=== PATIENT | female | born 1995 | race Caucasian/White ===

== ENCOUNTER → 2022-01-18 | Outpatient (CLI) | payer BC ==
[2022-01-18 22:38] LABS: HCT 42.8 % (37.2-46.3); HGB 13.5 g/dL (12.0-15.0); MCH 27.9 pg (27.0-32.0); MCHC 31.5 g/dL (32.0-37.0); MCV 88.4 fL (80.0-97.0); Mean Platelet Volume 11.7 fL (9.5-12.2); NRBC Per 100 WBC 0 /100 WBCS (0.0-0.0); Platelet Count 242 X 10*3/uL (140-440); RBC 4.84 X 10*6/uL (4.10-5.20); RDW 13.3 % (11.5-14.5)
[2022-01-18 22:45] LABS: DHEA Sulfate 51.3 ug/dL (26.0-430.0); Insulin Level 58.5 mIU/mL (3.0-25.0)
[2022-01-18 23:07] LABS: Estradiol 61.3 pg/mL
[2022-01-18 23:08] LABS: Follicle Stimulating Hormone 3.1 mIU/mL; Luteinizing Hormone 7.1 mIU/mL
[2022-01-18 23:33] LABS: ALT 36 U/L (8-44); AST 29 U/L (13-35); African American GFR (CKD) 144.5 (60.0-200.0); Albumin 4.5 g/dL (3.8-4.9); Albumin/Globulin Ratio 1.82 (1.60-3.17); Alkaline Phosphatase 106 U/L (41-126); BUN/Creat Ratio 13.97 Ratio (12.00-20.00); Blood Urea Nitrogen 8.8 mg/dL (9.0-27.0); Calcium 9.6 mg/dL (8.7-10.3); Carbon Dioxide 23.1 mmol/L (20.0-27.5); Chloride 103 mmol/L (96-109); Globulin 2.5 g/dL (1.6-3.3); Glucose 78 mg/dL (70-110); Non-African American GFR(CKD) 124.7 (60.0-200.0); Potassium 4.1 mmol/L (3.5-5.5); Sodium 136 mmol/L (135-145); Total Bilirubin <0.15 mg/dL (0.30-1.20)
[2022-01-18 23:46] LABS: Thyroid Peroxidase Antibodies <9.0 U/mL (0.0-33.0)
== END | disposition home or self-care (01) ==
LOC: LABWHC1 12:29
PROVIDERS: ATTEND Internal Medicine Endocrinology, Diabetes & Metabolism
DX: N91.2 Amenorrhea, unspecified (principal); R53.83 Other fatigue
CPT/HCPCS: 36415; 80053; 82024; 82533; 82607; 82627; 82670; 83001; 83002; 83525; 84144; 84146; 84403; 84439; 84443; 84481; 85027; 86376

== ENCOUNTER → 2022-02-11 | Outpatient (CLI) | payer BC ==
[2022-02-11 18:29] LABS: Progesterone 0.1 ng/mL
[2022-02-11 18:35] LABS: ALT 32 U/L (8-44); AST 23 U/L (13-35); African American GFR (CKD) 139.6 (60.0-200.0); Albumin 4.4 g/dL (3.8-4.9); Alkaline Phosphatase 113 U/L (41-126); BUN/Creat Ratio 13.29 Ratio (12.00-20.00); Blood Urea Nitrogen 9.3 mg/dL (9.0-27.0); Calcium 9.3 mg/dL (8.7-10.3); Carbon Dioxide 25.7 mmol/L (20.0-27.5); Chloride 104 mmol/L (96-109); Follicle Stimulating Hormone 2.9 mIU/mL; Glucose 123 mg/dL (70-110); Luteinizing Hormone 6.3 mIU/mL; Non-African American GFR(CKD) 120.4 (60.0-200.0); Potassium 4.2 mmol/L (3.5-5.5); Sodium 141 mmol/L (135-145); Total Bilirubin <0.15 mg/dL (0.30-1.20); Total Protein 6.4 g/dL (6.2-8.2)
[2022-02-12 03:03] LABS: ACTH 24.6 pg/mL (0.00-45.99)
== END | disposition home or self-care (01) ==
LOC: LABWHC1 11:51
PROVIDERS: ATTEND Internal Medicine Endocrinology, Diabetes & Metabolism
DX: N91.2 Amenorrhea, unspecified (principal)
CPT/HCPCS: 36415; 80053; 82024; 82627; 83001; 83002; 83498; 84144

== ENCOUNTER → 2022-12-02 | Outpatient (CLI) | payer OTHER ==
[2022-12-02 19:43] LABS: Prolactin 14.8 ng/mL (2.800-29.200)
[2022-12-02 20:34] LABS: Hepatitis B Surface AB- Quant 3.5 mIU/mL; Hepatitis B Surface Antibody Nonreactive (Nonreactive)
[2022-12-02 20:51] LABS: Hepatitis B Surface Antigen Nonreactive (Nonreactive); Hepatitis C IgG Antibody Nonreactive (Nonreactive)
[2022-12-02 21:41] LABS: HIV 2 AB Non-Reactive (Non-Reactive); HIV AB P24 Non-Reactive (Non-Reactive); HIV P24 AG Non-Reactive (Non-Reactive)
[2022-12-03 11:10] LABS: Prothrombin 20210A Mutation Negative
[2022-12-03 13:56] LABS: C. trachomatis,PCR Negative (Neg,Equiv); Chlamydia trachomatis Source Urine; N. gonorrhoeae,PCR Negative (Neg,Equiv); Neisseria Source Urine
[2022-12-03 17:41] LABS: Anti-Mullerian Hormone 15.13 ng/mL (0.69 - 13.39)
== END | disposition home or self-care (01) ==
LOC: LABWHC1 11:50
PROVIDERS: ATTEND Obstetrics & Gynecology Reproductive Endocrinology
DX: Z11.3 Encounter for screening for infections with a predominantly sexual mode of transmission (principal); E55.9 Vitamin D deficiency, unspecified
CPT/HCPCS: 36415; 81240; 81241; 82306; 82397; 83036; 84146; 84443; 86644; 86645; 86706; 86762; 86780; 86787; 86803; 86850; 86900; 86901; 87340; 87390; 87491; 87591

== ENCOUNTER → 2022-12-13 | Outpatient (CLI) | payer OTHER | END | disposition home or self-care (01) | LOC: LABWHC1 12:18 | PROVIDERS: ATTEND Obstetrics & Gynecology Reproductive Endocrinology | DX: E28.2 Polycystic ovarian syndrome (principal) | CPT/HCPCS: 36415; 84702 ==

== ENCOUNTER → 2024-12-12 | Outpatient (CLI) | payer BC ==
--- NOTE | 2024-12-12 14:53 | CT ---
EXAMINATION TYPE: CT abdomen pelvis w con DATE OF EXAM: 12/12/2024 COMPARISON: None CLINICAL INDICATION: Female, 29 years old with history of R10.30 LOWER ABD PAIN K59.00 CONSTIPTATION; [facility], Lower abd pain TECHNIQUE: Performed with Oral Contrast and with IV Contrast, patient injected with 100 ml mL of Isovue 300. CT DLP: [address] CTDI: mGy Automated exposure control for dose reduction was used. FINDINGS: The lung bases are clear. The gallbladder is normal without distention, wall thickening, pericholecystic fluid or gallstones. T here is no biliary ductal dilatation. There is no focal mass or organomegaly involving the liver, pancreas, spleen or adrenal glands. There is marked liver steatosis. There is no solid renal mass or hydronephrosis and there is homogeneous contrast enhancement of the r enal parenchyma. The caliber the abdominal aorta is normal is no retroperitoneal adenopathy or hemorr maday. The bowel loops are normal in caliber and there is no evidence of dilatation or obstruction. No infla mmatory changes are identified in the bowel wall or mesentery. There is no free intraperitoneal air or fluid. The right adnexal mass, likely the normal ovary is 5 cm in length. The left adnexal mass is 3.5 cm i s consistent with the left ovary. There is a 2.8 cm cyst in the left ovary. The osseous structures an d soft tissues are intact. IMPRESSION: 1. No acute changes within the abdomen or pelvis. 2. No bowel obstruction or significant stool burden to suggest constipation. 3. Normal appendix. 4. 2.8 cm left ovarian cyst. 5. No free fluid or free air. 6. Marked liver steatosis.. [facility], , 12/12/2024 2:51 PM
== END | disposition home or self-care (01) ==
LOC: RADCTMAIN 11:53
PROVIDERS: ATTEND Family Medicine
DX: K76.0 Fatty (change of) liver, not elsewhere classified (principal); K59.00 Constipation, unspecified; E28.2 Polycystic ovarian syndrome
CPT/HCPCS: 74177; Q9967